=== PATIENT | female | born 1950 | race Caucasian/White ===

== ENCOUNTER 2016-12-30 04:09 | Inpatient (IN) | payer OTHER ==
[~2016-12-30 04:09] MED LIST: ADVAIR 2501 DISK W/D IH; ALPRAZOLAM0.5 MG PO; CALCIUM +D & M1 EAC1 PO; CALCIUM 600 +1 EAC2 PO; CALCIUM 600 WI1 EACH PO; CELEXA20 MG PO; COMBIPATCH1 PATCH.BW TD; CRANBERRY CONC500 MG PO; CRANBERRY200 MG PO; CRANBERRY500 M PO; CULTURELLE1 CA1 NG; DAILY MULTIPLE1 EACH PO; ELAVIL25 MG PO; LEVOTHROID25 MCG PO; LIDOCAINE CREAM TOP; LIPITOR20 MG PO; LIPITOR40 MG PO; LOTRISONE15 GM TOP; MACROBID 100 M100 MG PO; MOTRIN800 MG PO; MULTIVITAMIN W/1 TAB PO; MULTIVITAMIN1 TAB PO; PERCOCET 5/3251 TAB PO; PERCOCET 5MG/AP1 TAB PO; PRO AIR HFA IH; PROBIOTIC1 EACH PO; PYRIDIUM200 MG PO; SINGULAIR10 MG PO; VENTOLIN HFA18 GM IH; VITAMIN C PO; VITAMIN D-1000 UNIT/ GT; VITAMIN D31000 UNIT PO; XYZAL5 MG PO; [UNRECOGNIZED DRUG - OTHER] TP
[2016-12-30] MEDS ORDERED: BYSTOLIC5 M1 PO (04:29)
[2016-12-30] MEDS ORDERED: PROBIOTIC1 EA10 PO (04:30)
[2016-12-30] MEDS ORDERED: FISH OIL EC 1,1 EAC1 PO (04:31)
[2016-12-30] MEDS ORDERED: VITAMIN D1000 UNI2 PO (04:31)
[2016-12-30] MEDS ORDERED: XANAX0.5 M1 PO (04:32)
[2016-12-30] MEDS ORDERED: LIDOCAINE (04:33)
[2016-12-30] MEDS ORDERED: ZINC (04:33)
[2016-12-30 05:09] LABS: BASO % 0.5 % (0-2); EOS % 1.8 % (0-7); EOSINOPHIL ABSOLUTE COUNT 0.1 tho/cmm (0.0-0.7); HCT-HEMATOCRIT 42.9 % (34.0-49.0); HGB-HEMOGLOBIN 14.2 gm/dl (12.0-15.5); IMMATURE GRANULOCYTES ABSOLUTE 0.02 tho/cmm (0-0.03); IMMATURE GRANULOCYTES PERCENT 0.3 % (0-0.3); LYMPH % 27.7 % (20-45); LYMPH ABSOLUTE COUNT 2.1 tho/cmm (0.8-4.5); MCH (MEAN CORPUSCULAR HGB) 30.2 pg (28.0-32.0); MCHC MEAN CORPUSCULAR HGB CONC 33.1 % (32.0-36.0); MCV (MEAN CELL VOLUME) 91.3 fl (82.0-96.0); MEAN PLATELET VOLUME 8.8 cmc (9.4-12.4); MONO % 8.3 % (0-12); MONOCYTE ABSOLUTE COUNT 0.6 tho/cmm (0.0-1.2); NEUTROPHIL ABSOLUTE COUNT 4.7 tho/cmm (1.6-8.0); NEUTROPHIL-AUTOMATED 4.7 tho/cmm (1.6-8.0); NEUTROPHILS % 61.4 % (40-80); PLATELET COUNT 223 tho/cmm (150-450); RED CELL DISTRIBUTION WIDTH 12.2 % (12.4-16.4); WHITE BLOOD COUNT 7.7 tho/cmm (4.0-10.0)
[2016-12-30 05:11] LABS: INR 0.9 INR (0.9-1.1); PROTHROMBIN TIME 10.3 SECONDS (9.0-13.6)
[2016-12-30 05:22] LABS: ALBUMIN 3.8 g/dl (3.5-5.0); ALKALINE PHOSPHATASE 90 U/L (33-138); ALT/SGPT 30 U/L (12-78); ANION GAP 10 mmol/L (0-20); AST/SGOT 24 U/L (10-40); BILIRUBIN,TOTAL 0.6 mg/dl (0-1.5); BLOOD UREA NITROGEN 8 mg/dl (6-24); CALCIUM 8.7 mg/dl (8.5-10.5); CARBON DIOXIDE-VENOUS 28 mmol/L (22-32); CHLORIDE 108 mmol/l (96-110); GLUCOSE 95 mg/dL (70-110); LIPASE 200 U/L (73-393); POTASSIUM 3.4 mmol/L (3.7-5.1); SODIUM 143 mmol/L (135-145); eGFR VALUE FOR BLACK >90 mL/Min
[2016-12-30 05:43] LABS: URINE BILIRUBIN NEGATIVE (NEG); URINE BLOOD NEGATIVE (NEG); URINE GLUCOSE (UA) NEGATIVE (NEG); URINE KETONE NEGATIVE (NEG); URINE LEUKOCYTE ESTERASE NEGATIVE (NEG); URINE NITRITE NEGATIVE (NEG); URINE PROTEIN NEGATIVE (NEG); URINE SPECIFIC GRAVITY 1.005 (1.003-1.030)
[2016-12-30 05:44] LABS: URINE APPEARANCE CLEAR; URINE COLOR YELLOW
[2016-12-30] MEDS ORDERED: SYNTHROID50 MC1 PO (09:43)
[2016-12-30] MEDS ORDERED: LEVAQUIN500 M1 PO (15:41)
[2016-12-30] MEDS ORDERED: FLAGYL500 M1 PO (15:42)
[2016-12-30] MEDS ORDERED: TYLENOL325 M2 PO (15:52)
[2017-02-28] MEDS ORDERED: MACROBID 100 M100 M1 PO (13:10)
[2017-02-28] MEDS ORDERED: FISH OIL + D31 EACH PO (13:11)
[2017-02-28] MEDS ORDERED: BENADRYL25 M3 PO (13:13)
[2017-03-03] MEDS ORDERED: ULTRAM50 M1 PO (11:35)
[2017-03-03] MEDS ORDERED: OXYCODONE HCL5 M1 PO (11:36)
[2017-03-03] MEDS ORDERED: STOP THE FOLLOWING: (11:41)
== END 2016-12-30 16:50 | DRG 394 ==
LOC: EDMED 04:09 → EMR2 07:04 → 5WD 09:10
PROVIDERS: Emergency Medicine; ADMIT Hospitalist
PROC: 0DBM8ZX Excision of Descending Colon, Via Natural or Artificial Opening Endoscopic, Diagnostic (ICD-10-PCS; principal; 2016-12-30)
DX: K55.9 Vascular disorder of intestine, unspecified (principal); N32.1 Vesicointestinal fistula; I10 Essential (primary) hypertension; K57.30 Diverticulosis of large intestine without perforation or abscess without bleeding; E78.5 Hyperlipidemia, unspecified; E87.6 Hypokalemia; Z79.899 Other long term (current) drug therapy; Z87.440 Personal history of urinary (tract) infections
CPT/HCPCS: G0500; J1335; J2250; J3010; J7030; Q9967